=== PATIENT | female | born 1980 | race American Indian/Alaskan Native ===

== ENCOUNTER 2022-12-28 09:49 | Outpatient (CLI) | payer OTHER | END 2022-12-28 09:50 | disposition home or self-care (01) | LOC: EKG 09:49 → LAB 09:49 → EKG 09:50 | PROVIDERS: ATTEND Internal Medicine | DX: Z13.6 Encounter for screening for cardiovascular disorders (principal) ==

== ENCOUNTER 2025-01-14 06:00 | Day surgery (SDC) | payer OTHER ==
[2025-01-09 09:16] VITALS: BP 133/94
[2025-01-09 09:32] LABS: BASO % 0.6 % (0.1-1.2); EOS # 0.24 (0.04-0.54); EOS % 4.7 % (0.7-7.0); LYMPH # 2.27 (1.18-3.74); LYMPH % 44.1 % (19.3-53.1); MEAN PLATELET VOLUME 10.90 fl (9.4-12.4); MONO # 0.41 (0.24-0.82); MONO % 8.0 % (4.7-12.5); NEUT # 2.19 (1.56-6.13); NEUT % 42.4 % (34.0-71.1); RED CELL DISTRIBUTION WIDTH 11.7 % (11.6-14.4)
[2025-01-09 09:58] LABS: INR 1.08
[2025-01-09 10:52] LABS: ALT/SGPT 33.0 U/L (12-78); AST/SGOT 23.0 U/L (15-37); BILIRUBIN TOTAL 0.87 mg/dL (0.3-1.2); BUN CREA RATIO 15.0 (7.0-25.0); CREATININE SERUM 0.68 mg/dL (0.55-1.02); GFR 94.89; GLOBULINA 3.7 G/DL (2.4-3.5); GLUCOSE FASTING 81.0 mg/dL (65-100); OSMOLALITY SERUM 277.0 MOSM/KG (275-295)
[~2025-01-14] VITALS: Ht 167.6 cm; Wt 72.6 kg
[~2025-01-14 06:00] MED LIST: BIOTENE ORALBAL42 G1; CRESTOR40 MG; [UNRECOGNIZED DRUG - OTHER]; [UNRECOGNIZED DRUG - OTHER] PO
[2025-01-14] MEDS ORDERED: POVIDONE-IODINE 118 ML BOTT TOP ONE (07:17)
== END 2025-01-14 12:50 | disposition home or self-care (01) ==
LOC: CIR.AMB 06:00
PROVIDERS: ATTEND Obstetrics & Gynecology Maternal & Fetal Medicine
DX: N84.0 Polyp of corpus uteri (principal)